=== PATIENT | male | born 1955 | race Caucasian/White ===

== ENCOUNTER 2024-07-15 13:19 | Inpatient (IN) | payer MEDICARE, MEDICAID, SELFPAY ==
[2024-07-09 07:15] VITALS: BMI 27.1
[2024-07-09 07:59] LABS: Collection Type, Urine Clean Catch; Squamous Epithelial Cell,Urine 0 /hpf (0-5)
[2024-07-09 08:17] LABS: Basophils # (Auto) 0.1 Thou/mm3 (0.0-0.2); Basophils % (Auto) 1 % (0-2.5); Eosinophils # (Auto) 1.3 Thou/mm3 (0.0-0.5); Eosinophils % (Auto) 12 % (0-10); Hematocrit 48.5 % (41.0-53.0); Hemoglobin 16.6 g/dL (13.5-16.0); Immature Granulocytes % (Auto) 0 % (0-0); Immature Granulocytes Auto 0.04 Thou/mm3 (0.00-0.00); Lymphocytes # (Auto) 2.6 Thou/mm3 (1.0-4.8); Lymphocytes % (Auto) 25 % (10-50); Mean Corpuscular HGB Conc 34.2 g/dl (31.0-37.0); Mean Corpuscular Hemoglobin 30.4 pg (25.0-35.0); Mean Corpuscular Volume 89 fL (80-100); Monocytes % (Auto) 9 % (0-12); Neutrophils # (Auto) 5.6 Thou/mm3 (1.8-7.7); Neutrophils % (Auto) 53 % (37-80); Nucleated Red Blood Cell % 0 /100 WBC (0); Platelet Count 265 Thou/mm3 (140-440); RDW Standard Deviation 41.5 fL (35.1-43.9); Red Blood Count 5.46 Miln/mm3 (4.50-5.90); White Blood Count 10.6 Thou/mm3 (3.8-10.6)
[2024-07-09 08:23] LABS: Bilirubin,Urine Negative (Negative); Blood,Urine Negative (Negative); Clarity,Urine Clear (Clear/Hazy); Color,Urine Lt-Yellow (Lt Yel-Yel); Glucose, Urine 4+ (Negative); Ketones,Urine Negative (Negative); Leukocyte Esterase,Urine Negative (Negative); Nitrite,Urine Negative (Negative); Protein,Urine Negative (Neg - Trace); RBC,Urine 1 /hpf (0-3); Specific Gravity,Urine 1.031 (1.001-1.035); Urobilinogen,Urine Negative mg/dL (0.0-1.0); WBC,Urine 1 /hpf (0-5)
[2024-07-09 08:24] LABS: Alanine Aminotransferase 26 U/L (10-49); Albumin, Serum 5.1 gm/dL (3.4-4.8); Albumin/Globulin Ratio 1.9 (1.2-2.2); Alkaline Phosphatase 80 U/L (46-116); Anion Gap 5 (7-16); Aspartate Amino Transferase 24 U/L (0-34); BUN/Creatinine Ratio 13 Ratio (12-20); Bilirubin,Total 0.9 mg/dL (0.3-1.2); Blood Urea Nitrogen 13 mg/dL (9-23); Calcium 10.5 mg/dL (8.3-10.6); Calcium (Corrected) 10.5 mg/dL (8.5-10.1); Carbon Dioxide 26.9 mMol/L (20.0-31.0); Chloride 105 mMol/L (98-107); Estimated Creatinine Clearance 63.8 mL/min (>60); Globulin 2.7 gm/dL (2.3-3.5); Glucose 133 mg/dL (74-106); Osmolality,Calculated 275 (275-295); Potassium 4.3 mMol/L (3.4-5.1); Sodium 137 mMol/L (136-145); Total Protein 7.8 gm/dL (5.7-8.2); eGFR > 60 See Note
--- NOTE | 2024-07-09 14:31 | SUR.PREOP ---
Cardiac records reviewed with Dr Wilson.
--- NOTE | 2024-07-13 16:42 | ESHP_ITS ---
RE: PHILLY ORNELAS : 1955 DATE OF ADMISSION: 07/14/2024 HISTORY OF PRESENT ILLNESS: Fercho Ornelas is a 69-year-old male. He has a prostatism, urinates many times at night, nocturia 3-4 times. He is on tamsulosin and finasteride. He takes tamsulosin once a day. Cystoscopy in the past has revealed moderate-sized bilobed prostate. He had a transrectal prostatic ultrasound and biopsy, which were reported as benign prostatic hypertrophy. He is very much disturbed with his nocturia and wishes to have something else done. He is now scheduled to have transurethral resection of prostate. PAST SURGICAL HISTORY: Right shoulder surgery and appendectomy. SOCIAL HISTORY: He has 2 children. PAST MEDICAL HISTORY: He has history of hypertension and history of diabetes mellitus. MEDICATIONS: He takes: 1. Janumet. 2. Tamsulosin. 3. Statin medication. 4. Norvasc. 5. Sertraline. 6. Aspirin. 7. Hydroxyzine. 8. Jardiance. 9. Finasteride. ALLERGIES: NONE KNOWN. CLINICAL EXAMINATION: HEENT: Normal. Neck: Supple. Lungs: Clear. Heart: Sounds are normal. Abdomen: Soft without any organomegaly, no guarding, no rigidity. Extremities: Normal. Genitalia: Phallus is normal. Testes are down in the scrotum. Rectal: Reveals moderately enlarged prostate. IMPRESSION: Prostatism and prostatic obstruction. PLAN: Transurethral resection of prostate. Planned procedure, risks and complications have been discussed with the patient. The patient has understood them and agreed to proceed. cc: Pete Strauss MD DT: 14:28:27 TT: 16:40:00 Ref: [id number] - TID: [id number]
[2024-07-14] VITALS (24 sets, daily range): BP systolic 100–156; BP diastolic 62–98; PULSE 76–96; RESP 14–24; TEMP 36–37.1; O2SAT 93–99; BMI 26.9
--- NOTE | 2024-07-14 07:30 | CHAP ---
Visited briefly with patient and had prayer before the procedure.
[2024-07-14] MEDS: NICOTINE PATCH 21 MG/24 HR PATCH.TD24 TOP (08:50)
--- NOTE | 2024-07-14 09:40 | SUR.PHASEI ---
0940 Patient arrived to recovery resting comfortably in [facility], sleeping and able to arouse with verbal prompting, then drifts back to sleep, on oxygen 10L via oxy mask, breathing unlabored, vital signs stable, denies pain, nicotine patch noted to left shoulder, dressing intact to penis; ointment, gauze, silk tape, 3-way daly catheter in place with leg secure; continuous bladder irrigation in place, patient has 3000ml bag of NS for irrigation, fluid in daly bag is pale, lung sounds clear upon auscultation, bilateral radial pulses present when palapted, report received from Rey WEBSTER/Dr. Wilson and Tonny TAVARES
[2024-07-14] MEDS: SODIUM CHLORIDE 0.9% 1000 ML 1,000 ML 100 ML IV ×2 (10:32→21:27)
[2024-07-14] MEDS: fentaNYL CIT INJ 50 mCg/ML AMP 2ML IV (10:48)
--- NOTE | 2024-07-14 11:21 | ESOP_ITS ---
RE: PHILLY ORNELAS : 1955 DATE OF OPERATION: 07/14/2024 PREOPERATIVE DIAGNOSIS: Prostatism, prostatic obstruction. POSTOPERATIVE DIAGNOSIS: Prostatism, prostatic obstruction. PROCEDURE PERFORMED: Cystoscopy and transurethral resection of prostate. ANESTHESIA: General by Dr. Wilson. INDICATION: The patient is a 69-year-old gentleman with history of prostatism and prostatic obstruction. He has been having frequency, nocturia, slowing urinary stream. He has been on medication. It is not helping him much and cystoscopy revealed obstructive bilobar prostate with small median lobe. The patient wishes to have something done for his enlarged prostate. Transurethral resection of prostate was then scheduled. Planned procedure, risks and complications have been discussed with the patient. The patient and his family have understood them and agreed to proceed. DESCRIPTION OF PROCEDURE: After the patient was brought to the operating table under adequate general anesthesia, and dorsal lithotomy position, parts were prepped and draped in the usual fashion. Storz resectoscope was then introduced into the bladder. Inspection again revealed obstructive medium size bilobed prostate. There are no intravesical stones or tumors. Ureteral orifices are normal in position and appearance. Transurethral resection of prostate was then carried out by resecting median lobe, right lobe, and left lobe up to the capsule. Minimal bleeding was encountered, which was controlled by using electrocoagulation. Both ureteral orifices, verumontanum and external urethral sphincter were prevented from any injury. All resected chips were removed from the bladder by using Ellik's evacuator. After this, an Olympus button type of electrode was used to control all the bleeding. Resectoscope was then removed. A 22-Indonesian 3-way Short catheter was then inserted into the bladder and was left indwelling. Irrigation of catheter revealed clear return. Catheter was then connected to a sterile bag and the patient was then transferred to the recovery room in a satisfactory condition, having tolerated the entire procedure well. Thank you for your kind referral. cc: Pete Strauss MD DT: 10:05:14 TT: 11:19:00 Ref: [id number] - TID: [id number]
--- NOTE | 2024-07-14 11:24 | SUR.PHASEII ---
1124 Called patients [id number] John and updated her about patient being in recovery and requesting no visitors at the time
--- NOTE | 2024-07-14 11:50 | SUR.PHASEII ---
1150 Report given to Sarah Choudhary RN
--- NOTE | 2024-07-14 11:50 | SUR.PHASEII ---
pt resting in bed, breathing unlabored, dressing to penis clean, dry, and intact, daly in place and patent, continuous bladder irrigation running, report from Sarah Sethi RN
--- NOTE | 2024-07-14 12:28 | SUR.PHASEII ---
1228 Report received from Sarah Choudhary RN
--- NOTE | 2024-07-14 12:28 | SUR.PHASEII ---
report to Sarah Sethi RN
--- NOTE | 2024-07-14 12:52 | SUR.PHASEII ---
1252 patient sitting up in bed eating a jello
[2024-07-14] MEDS: HYDROcodone/APAP 5/325 TABLET 1 TAB PO (12:57)
--- NOTE | 2024-07-14 14:48 | SUR.PHASEII ---
[address] Ba via telephone about patient hematuria and need for increase rate for continuous irrigation as the fluid is not clear, MD stated this was to be expected because patient takes aspirin and to continue as ordered and keep irrigation at medium rate, patient vital signs stable, resting comfortably in [facility], no bladder distention noted 3106 Dr. Ba called via telephone requesting patient current vital signs BP 119/75, HR 80, oxygen saturation 98 on 2L via oxy mask, RR 15, denies pain just stated, discomfort from catheter, temp 97.2, gave order to continue care, no new orders at this time
--- NOTE | 2024-07-14 15:50 | SUR.PHASEII ---
1550 patient ate an apple sauce, bowl of cream of chicken soup and drinking water, tolerated well
[2024-07-14] MEDS: KETOROLAC INJ 30 MG/ML VIAL IVP ×2 (16:45→22:32)
--- NOTE | 2024-07-14 16:55 | SUR.PHASEII ---
1639 Report given to Chandu TAVARES, patient meets discharge criteria from recovery, awake and alert, breathing unlabored, on oxygen 2L via oxy mask, per patient his pain is tolerable, dressing intact; light blood noted to dressing, patient denies nausea, continuous bladder irrigation in place with medium drip per MD order with catheter secure, bright red fluid in daly bag, IV patent, fluids running per MD order. 1642 patient complained of pain 1645 patient medicated per MD order for pain 1655 patient transported via gurney to room 358 without incident, patient able to transfer self from gurney to bed with assistance from staff, Liseth TAVARES prompting in patient room, all questioned answer and RN informed of continuos bladder irrigation and the process
--- NOTE | 2024-07-14 17:18 | SUR.PHASEII ---
called patients sister in law and notified her regarding patients room assignment and he was in the room now
[2024-07-14] MEDS: PROMETHAZINE INJ 25 MG/ML VIAL IM ×2 (18:33→23:01)
[2024-07-14] MEDS: MEPERIDINE INJ 50 MG/ML VIAL 75 MG IM (18:34)
--- NOTE | 2024-07-14 18:50 | PC.NURSE ---
Pt. received from the recovery , on a continous irrigation, color of the drainage is bright red SINCE received , pt. on 2 l oxy mask. Spoke woith Dr. contreras and updated him about the drainage and the clog and the drainage amount and color. Dr. Andres saw pt. on bedside. Did the irrigation and wants to put the pt. NPO mid night.
[2024-07-14 19:16] LABS: Basophils % (Auto) 0 % (0-2.5); Eosinophils % (Auto) 0 % (0-10); Hematocrit 41.4 % (41.0-53.0); Hemoglobin 13.9 g/dL (13.5-16.0); Immature Granulocytes % (Auto) 0 % (0-0); Immature Granulocytes Auto 0.04 Thou/mm3 (0.00-0.00); Lymphocytes # (Auto) 0.9 Thou/mm3 (1.0-4.8); Lymphocytes % (Auto) 7 % (10-50); Mean Corpuscular HGB Conc 33.6 g/dl (31.0-37.0); Mean Corpuscular Hemoglobin 29.7 pg (25.0-35.0); Mean Corpuscular Volume 89 fL (80-100); Monocytes # (Auto) 0.7 Thou/mm3 (0.0-0.8); Monocytes % (Auto) 5 % (0-12); Neutrophils # (Auto) 12.2 Thou/mm3 (1.8-7.7); Neutrophils % (Auto) 88 % (37-80); Nucleated Red Blood Cell % 0 /100 WBC (0); Platelet Count 194 Thou/mm3 (140-440); RDW Standard Deviation 41.8 fL (35.1-43.9); Red Blood Count 4.68 Miln/mm3 (4.50-5.90); White Blood Count 13.9 Thou/mm3 (3.8-10.6)
--- NOTE | 2024-07-14 19:41 | PC.NURSE ---
wants pt. to be NPO now.
--- NOTE | 2024-07-14 20:30 | PC.NURSE ---
Called Dr. Ba with CBC result as requested.
[2024-07-14] MEDS: MEPERIDINE INJ 50 MG/ML VIAL 100 MG IM (23:00)
[2024-07-15] VITALS (20 sets, daily range): BP systolic 93–123; BP diastolic 56–85; PULSE 77–122; RESP 15–95; TEMP 35.4–36.8; O2SAT 91–100
[2024-07-15] MEDS: MEPERIDINE INJ 50 MG/ML VIAL 100 MG IM ×2 (05:03→22:11)
[2024-07-15] MEDS: PROMETHAZINE INJ 25 MG/ML VIAL IM (05:04)
[2024-07-15 07:27] LABS: Basophils # (Auto) 0.1 Thou/mm3 (0.0-0.2); Basophils % (Auto) 0 % (0-2.5); Eosinophils # (Auto) 0.1 Thou/mm3 (0.0-0.5); Eosinophils % (Auto) 1 % (0-10); Hematocrit 29.8 % (41.0-53.0); Hemoglobin 9.9 g/dL (13.5-16.0); Immature Granulocytes % (Auto) 0 % (0-0); Immature Granulocytes Auto 0.06 Thou/mm3 (0.00-0.00); Lymphocytes # (Auto) 2.5 Thou/mm3 (1.0-4.8); Lymphocytes % (Auto) 16 % (10-50); Mean Corpuscular HGB Conc 33.2 g/dl (31.0-37.0); Mean Corpuscular Hemoglobin 30.5 pg (25.0-35.0); Mean Corpuscular Volume 92 fL (80-100); Monocytes # (Auto) 1.9 Thou/mm3 (0.0-0.8); Monocytes % (Auto) 12 % (0-12); Neutrophils # (Auto) 10.6 Thou/mm3 (1.8-7.7); Neutrophils % (Auto) 70 % (37-80); Nucleated Red Blood Cell % 0 /100 WBC (0); Platelet Count 197 Thou/mm3 (140-440); RDW Standard Deviation 43.5 fL (35.1-43.9); Red Blood Count 3.25 Miln/mm3 (4.50-5.90); White Blood Count 15.1 Thou/mm3 (3.8-10.6)
[2024-07-15 07:54] LABS: Albumin, Serum 3.7 gm/dL (3.4-4.8); Anion Gap 9 (7-16); BUN/Creatinine Ratio 18 Ratio (12-20); Blood Urea Nitrogen 24 mg/dL (9-23); Calcium 8.5 mg/dL (8.3-10.6); Calcium (Corrected) 8.7 mg/dL (8.5-10.1); Carbon Dioxide 20.9 mMol/L (20.0-31.0); Chloride 108 mMol/L (98-107); Creatinine (Component) 1.3 mg/dL (0.6-1.3); Estimated Creatinine Clearance 49.1 mL/min (>60); Glucose 201 mg/dL (74-106); Osmolality,Calculated 285 (275-295); Phosphorous 4.9 mg/dL (2.4-5.1); Potassium 4.6 mMol/L (3.4-5.1); Sodium 138 mMol/L (136-145); eGFR 60 See Note
--- NOTE | 2024-07-15 08:15 | CHAP ---
Rapid Response call. Prayed for patient and staff outside room.
[2024-07-15 10:14] LABS: INR 1.1 (0.9-1.3); Partial Thromboplastin Time 23.6 Seconds (22.0-36.0); Prothrombin Time 11.9 Seconds (9.0-12.2)
[2024-07-15] MEDS: SODIUM CHLORIDE 0.9% 500 ML 500 ML 999 ML IV (10:15)
[2024-07-15 10:21] LABS: Glucose Estimated Average 117 mg/dL (80-131); Hemoglobin A1C 5.7 % Hgb (4.8-6.0)
[2024-07-15] MEDS: LEVOFLOXACIN/D5W 500 MG IVPB 500 MG/100 ML BAG 100 MG IV (10:23)
--- NOTE | 2024-07-15 10:51 | CHAP ---
Patient was visited by a Spiritual Care Volunteer on 07/15/2024 between [phone] and received comfort, encouragement and/or prayer.
--- NOTE | 2024-07-15 11:28 | PC.SS ---
Patient Brenden Albert is a 69 Year old male admitted for Turp 19620. SS met with patient at bedside to discuss discharge plan. Patient reports he lives alone. Patient reports his sister in law is his surrogate decision maker [phone]. Patient reports that prior to admission he did not utilize any source of DME to assist with ambulation. Choice of pharmacy is [facility]. Patient's PCP: Pete Strauss. At time of discharge patient will return home. Next of Kin: Sister in law, John Albert [phone] Discharge Plan: Home
--- NOTE | 2024-07-15 12:30 | SUR.PHASEI ---
pt received from LELA in recovery bay 8. pt asleep but responds to voice, breathing unlabored on oxymask 8l. v/s stable. pt dressing to penis area cdi. report received from Jose C TAVARES and Dr. Rivas.
--- NOTE | 2024-07-15 13:28 | SUR.PHASEI ---
pt asleep but responds to voice, breathing unlabored on 2l nc. v/s stable. pt dressing to penis area cdi. [address] draining clear and pale. report called to Alysa TAVARES. pt will be transferred to room at this time.
--- NOTE | 2024-07-15 14:04 | ESCONSULT_ITS ---
HPI Data of Consult Requesting Physician: Bernabe Ba MD Admitting Provider: Bernabe Ba MD Attending Provider: Bernabe Ba MD Primary Care Provider: Pete Strauss MD Consult Narrative Reason for consult: Dizziness, acute blood loss History of present illness: Mr. Albert is a 69-year-old male with past medical history of benign hypertrophy of prostate, hypertension, diabetes and anxiety who was admitted to [facility] for TURP due to underlying symptomatic nocturia because of moderate sized bilobed prostate. Patient underwent procedure on 07/14/2024. Postprocedure patient had gross hematuria, was on bladder irrigation, patient's hemoglobin decreased from 13.9 to 9.9 overnight and patient, rapid response called for the patient in a.m., patient's blood pressure 83/67, patient tachycardic with heart rate of 115, patient complained of dizziness. Patient was given 500 cc bolus of NS, will be given 2 units PRBC. Patient evaluated by Dr. Ba and patient will be taken to the OR for further intervention. cc:: cc: Bernabe Ba MD Review of Systems Review of Systems Narrative Review of Systems: ROS: -CONSTITUTIONAL: Denies weight loss, fever and chills. Positive for dizziness, reports feeling tired. -HEENT: Denies changes in vision and hearing. -RESPIRATORY: Denies SOB and cough. -CV: Denies palpitations and Chest Pain. -GI: Denies abdominal pain, nausea, vomiting,constipation and diarrhea. -: Positive for hematuria. -MSK: Denies myalgia and joint pain. -SKIN: Denies rash and pruritus. -NEUROLOGICAL: Denies headache and syncope. -PSYCHIATRIC: Denies recent changes in mood. Denies anxiety and depression. Past Medical History Past Medical History Comments PMH COMMENT: PMH: Positive for benign hypertrophy of prostate, hypertension, diabetes and anxiety PSHx: Denies Allergies: No known allergies Social history: -Smoking: Positive for smoking Exam Vital Signs Temp Pulse Resp BP Pulse Ox O2 Del Method O2 Flow Rate 97.2 F 84 15 112/66 96 Oxy Mask 2 07/15/24 13:25 07/15/24 13:25 07/15/24 13:25 07/15/24 13:25 07/15/24 13:25 07/15/24 10:30 07/15/24 13:25 Narrative Exam Physical Exam General: Awake and in no acute distress. Conversational and non-toxic appearing. HEENT: Normocephalic, atraumatic, mucous membranes moist. Heart: Regular rate and rhythm, no murmurs. Lungs: Clear to auscultation with no wheezing or crackles. Abdomen: Soft, nondistended, nontender, positive bowel sounds. Patient's urine positive for bright red blood, seen at bedside. Neurologic: Alert and oriented x3, no gross neurological deficit, and patient able to move all 4 extremities. Extremities: No edema. Skin: No rash or ecchymoses. Results Labs 07/16/24 05:03 07/16/24 05:03 Labs: Short CBC 07/14/24 07/15/24 Range/Units 18:52 07:15 WBC 13.9 H 15.1 H (3.8-10.6) Thou/mm3 Hgb 13.9 D 9.9 L D (13.5-16.0) g/dL Hct 41.4 29.8 L D (41.0-53.0) % Plt Count 194 D 197 (140-440) Thou/mm3 BMP 07/15/24 07:15 Sodium 138 Potassium 4.6 Chloride 108 H Carbon Dioxide 20.9 BUN 24 H Creatinine 1.3 Glucose 201 H Calcium 8.5 Liver Function 07/15/24 Range/Units 07:15 Albumin 3.7 (3.4-4.8) gm/dL Quality Measures Quality Measures VTE prophylaxis Advance care planning discussed with:: patient Medications Home Medications and Allergies Home Medications ?Medication ?Instructions ?Recorded ?Confirmed ?Type atorvastatin 40 mg tablet (Lipitor) 40 mg PO HS #0 tabs 09/02/17 07/09/24 History finasteride 5 mg tablet (Proscar) 5 mg PO QDAY #0 tabs 09/02/17 07/14/24 History sertraline 25 mg tablet (Zoloft) 25 mg PO HS #0 tabs 09/02/17 07/14/24 History tamsulosin 0.4 mg capsule (Flomax) 0.4 mg PO QDAY ##0 09/02/17 07/14/24 History amlodipine 2.5 mg tablet 10 mg PO QDAY 11/11/23 07/09/24 History aspirin 81 mg tablet,delayed 81 mg PO DAILY 05/21/24 07/14/24 History release hydroxyzine HCl 25 mg tablet 25 mg PO BID PRN Anxiety 05/21/24 07/14/24 History empagliflozin 25 mg tablet 25 mg PO QAM 06/11/24 07/14/24 History (Jardiance) sitagliptin phosphate 50 1 tab PO BID 07/09/24 07/14/24 History mg-metformin 1,000 mg tablet (Janumet) Allergies Allergy/AdvReac Type Severity Reaction Status Date / Time No Known Allergies Allergy Verified 07/14/24 09:51 Visit Medications Hydrocodone Bitart/Acetaminophen (Hydrocodone/Apap 5/325 Tablet) 1 tab PO Q6HR PRN PRN Reason: PAIN 2-3 Stop: 07/19/24 10:17 Last Admin: 07/14/24 12:57 Dose: 1 tab Dextrose (Dextrose 50%-Water Inj 50 Ml Syringe) 25 ml IV Q15MIN PRN PRN Reason: BG 50-70 responsive npo pt Stop: 08/14/24 09:40 Dextrose (Dextrose 50%-Water Inj 50 Ml Syringe) 50 ml IV Q15MIN PRN PRN Reason: BG <50 OR BG <70 & pt unresponsive Stop: 08/14/24 09:40 Glucagon (Glucagon Inj 1 Mg Vial) 1 mg IM Q15MIN PRN PRN Reason: BG <70, and no IV access Levofloxacin/Dextrose (Levaquin Ivpb) 500 mg in 100 mls @ 100 mls/hr IV Q24H COUNTS INCLUDE 234 BEDS AT THE [facility] Stop: 07/22/24 07:59 Last Admin: 07/15/24 10:23 Dose: 100 mls/hr Sodium Chloride (Ns) 1,000 mls @ 100 mls/hr IV .Q10H COUNTS INCLUDE 234 BEDS AT THE [facility] Stop: 07/16/24 13:40 Insulin Human Lispro (Insulin Lispro (Admelog) 1 Unit/0.01 Ml Unit) 0 unit [facility]; Protocol Stop: 08/14/24 11:29 Last Admin: 07/15/24 11:41 Dose: Not Given Meperidine HCl (Meperidine Inj 50 Mg/Ml Vial) 100 mg IM Q6HR PRN PRN Reason: PAIN SCALE 7-10 (Severe Stop: 07/19/24 22:48 Last Admin: 07/15/24 05:03 Dose: 100 mg Ondansetron HCl (Ondansetron Inj 2 Mg/Ml Inj 2 Ml) 4 mg IV Q6HR PRN PRN Reason: NAUSEA OR VOMITING Stop: 08/13/24 10:13 Promethazine HCl (Promethazine Inj 25 Mg/Ml Vial) 25 mg IM Q6HR PRN PRN Reason: To be given with Dermerol Stop: 08/13/24 10:13 Last Admin: 07/15/24 05:04 Dose: 25 mg Discontinued Medications Hydrocodone Bitart/Acetaminophen (Hydrocodone/Apap 5/325 Tablet) 1 tab PO X1 PRN PRN Reason: PAIN Fentanyl Citrate (Fentanyl Cit Inj 50 Mcg/Ml Amp 2ml) 50 mcg IV Q5M PRN PRN Reason: PAIN SCALE 4-10(Mod-Sev Stop: 07/14/24 11:29 Last Admin: 07/14/24 10:48 Dose: 50 mcg Hydralazine HCl (Hydralazine Inj 20 Mg/Ml Vial) 5 mg IV Q20M PRN PRN Reason: SEE COMMENTS Stop: 07/14/24 11:29 Lactated Ringer's (Lactated Ringers) 1,000 mls @ 20 mls/hr IV .Q24H ONE Stop: 07/15/24 05:59 Last Admin: 07/14/24 12:25 Dose: Not Given Promethazine HCl 12.5 mg/ (Sodium Chloride) 50.5 mls @ 2.5 mls/min IM X1 PRN PRN Reason: NAUSEA OR VOMITING Stop: 07/14/24 11:29 Sodium Chloride (Ns) 1,000 mls @ 100 mls/hr IV .Q10H OPAL Stop: 07/15/24 10:29 Last Admin: 07/14/24 21:27 Dose: 100 mls/hr Sodium Chloride (Ns) 500 mls @ 999 mls/hr IV .Q31M ONE Stop: 07/15/24 08:57 Last Admin: 07/15/24 10:15 Dose: 999 mls/hr Ketorolac Tromethamine (Ketorolac Inj 30 Mg/Ml Vial) 30 mg IVP Q6HR PRN PRN Reason: PAIN SCALE 4-6 (Moderate Stop: 07/19/24 10:13 Last Admin: 07/14/24 22:32 Dose: 30 mg Meperidine HCl (Meperidine Inj 50 Mg/Ml Vial) 12.5 mg IV Q5M PRN PRN Reason: SHIVERING Stop: 07/19/24 09:28 Meperidine HCl (Meperidine Inj 50 Mg/Ml Vial) 75 mg IV Q6HR PRN PRN Reason: PAIN SCALE 7-10 (Severe Stop: 07/19/24 09:28 Meperidine HCl (Meperidine Inj 50 Mg/Ml Vial) 75 mg IM Q6HR PRN PRN Reason: PAIN SCALE 7-10 (Severe Stop: 07/19/24 09:28 Last Admin: 07/14/24 18:34 Dose: 75 mg Metoprolol Tartrate (Metoprolol Tartrate Inj 1 Mg/Ml Amp 5 Ml) 1 mg IVP Q5M PRN PRN Reason: TACHYCARDIA Stop: 07/15/24 09:28 Metoprolol Tartrate (Metoprolol Tartrate Inj 1 Mg/Ml Amp 5 Ml) 1 mg IVP Q5M PRN PRN Reason: TACHYCARDIA Stop: 07/14/24 11:29 Midazolam HCl (Midazolam Inj 1 Mg/Ml Vial 2 Ml) 1 mg IV Q5M PRN PRN Reason: ANXIETY Stop: 07/14/24 11:29 Morphine Sulfate (Morphine Sulf Inj 10 Mg/Ml Vial) 2 mg IVP Q10M PRN PRN Reason: PAIN SCALE 4-10(Mod-Sev Stop: 07/14/24 11:29 Nicotine (Nicotine Patch 21 Mg/24 Hr Patch.Td24) 21 mg TOP X1 ONE Stop: 07/14/24 07:56 Last Admin: 07/14/24 08:50 Dose: 21 mg Ondansetron HCl (Ondansetron Inj 2 Mg/Ml Inj 2 Ml) 4 mg IV X1 PRN PRN Reason: NAUSEA OR VOMITING Stop: 07/14/24 11:29 Assessment & Plan Plan Assessment and Plan: Summary: Mr. Albert is a 69-year-old male with past medical history of benign hypertrophy of prostate, hypertension, diabetes and anxiety who was admitted to [facility] for TURP for symptomatic benign hypertrophy of prostate. #Gross hematuria #Acute anemia secondary to gross hematuria #Benign hypertrophy of prostate #Status post TURP 07/14 -Patient complained of nocturia and urinary symptoms, patient was admitted for transurethral resection of prostate due to underlying symptomatic benign hypertrophy of prostate. -Patient's status post TURP, had a rapid response called for dizziness and low blood pressure, blood pressure 83/67 (MAP 72), patient tachycardic, was undergoing bladder irrigation gross hematuria noted at bedside. Patient was given 500 cc bolus NS. Plan: -Transfused 2 units PRBC -Monitor posttransfusion H&H -Patient will be taken to the OR by urology later today for surgical intervention -Hold aspirin. -Will obtain PT PTT and INR #Diabetes mellitus -Patient takes Jardiance, Janumet at home -Follow A1c in a.m. -Lispro sliding scale insulin -Hypoglycemia protocol in place # Hypertension #Hyperlipidemia #Anxiety -Patient takes amlodipine 10 mg daily for hypertension, will hold blood pressure soft -Resume atorvastatin at bedtime -Resumed hydroxyzine 25 mg p.o. twice daily -Will hold Zoloft for now DVT prophylaxis: SCDs GI prophylaxis: Not indicated Diet: N.p.o. Lines: Peripheral IV Code status: Full code Case discussed with Attending Dr. Cardona. Aracely Douglass PGY1 Attending Provider Attestation/Addendum I, Jacinda Cardona DO, attest that I was physically present for the saunders portions of the service and evaluated the patient with the resident and I reviewed and discussed the case with the resident and agree with the resident's findings and plans of care as documented above Patient is a 69yo male with Pmhx of BPH, HTN and NIDDM who is s/p TURP yesterday on 07/15 and admitted for observation overnight. IM consulted for gross hematuria resulting in rapid response this AM during which patient was tachycardic and hypotensive.. Patient had been on bladder irrigation overnight and noted to have a significant drop in hgb from 13.9 to 9.9 Patient was given a bolus of 500cc of IV fluids, followed by two units of pRBCs to be transfused. Coagulation panel ordered. Patient was promptly taken to the OR for evacuation of blood clots. Patient was seen following procedure and resting comfortably. Short catheter draining clear urine. Hgb improved to 10.7 following transfusion. Patient now hemodynamically stable. We will continue to follow closely.
[2024-07-15 14:32] LABS: Hematocrit 31.6 % (41.0-53.0); Hemoglobin 10.7 g/dL (13.5-16.0)
[2024-07-15] MEDS: NICOTINE PATCH 21 MG/24 HR PATCH.TD24 TOP (14:55)
[2024-07-15] MEDS: SODIUM CHLORIDE 0.9% 1000 ML 1,000 ML 100 ML IV (14:56)
--- NOTE | 2024-07-15 15:24 | ESOP_ITS ---
RE: PHILLY ORNELAS : 1955 DATE OF OPERATION: 07/15/2024 PREOPERATIVE DIAGNOSIS: Clot, urinary retention, history of transurethral resection of prostate done on 07/14/2024. POSTOPERATIVE DIAGNOSIS: Clot, urinary retention, history of transurethral resection of prostate done on 07/14/2024. PROCEDURE PERFORMED: Cystoscopy, evacuation of large amount of bladder clots and fulguration of the prostatic fossa. ANESTHESIA: General by Dr. Rivas. INDICATION: The patient is a 69-year-old gentleman who had a transurethral resection of prostate for obstructive prostate yesterday. The procedure was done without any complications. He was in the recovery room, the urine was completely clear for at least about 2 hours and then he had a little bleeding. Overnight the patient had more bleeding and clot urinary retention. I saw the patient last night at about 6 o'clock and catheter was irrigating well. This morning the patient had retention of urine from the clot. He was now scheduled to have cystoscopy, evacuation of bladder clots and the fulguration of the prostatic fossa. Planned procedure, risks and complications have been discussed with the patient and the patient's family. They have understood them and agreed to proceed. DESCRIPTION OF PROCEDURE: After the patient was brought to the operating table under adequate general anesthesia given by Dr. Rivas, he was placed in dorsal lithotomy position. Short catheter from the bladder was removed. A 26 Storz resectoscope was then introduced into the bladder. The patient had a large amount of bladder clots. These were evacuated with a large amount of fluid. All the clots were removed from the bladder. The bladder appeared to be intact. There was no evidence of any bladder trauma. There was no bladder tumor or stones. Ureteral orifices are normal. Prostatic fossa was examined. There was no active bleeding, but small areas of oozing, which were all fulgurated with electrodes with electrocautery. At the end, there was no area of clots or bleeding. Prostatic fossa appeared to be empty without any obstruction. Scope was withdrawn. A 22-Romansh Short catheter was then inserted into the bladder and was left indwelling. Irrigation of catheter revealed clear return. Catheter was then connected to a sterile bag. The patient was then transferred to the recovery room in a satisfactory condition having tolerated the entire procedure well. Blood loss during this procedure was about 25 mL most of them were all old blood clots, which were removed from the bladder. DT: 12:46:18 TT: 15:22:00 Ref: [id number] - TID: [id number]
[2024-07-15] MEDS: INSULIN LISPRO (AdmeLOG) 1 UNIT/0.01 ML UNIT SC (17:50)
[2024-07-15] MEDS: ATORVASTATIN CALCIUM 20 MG TABLET 40 MG PO (20:02)
--- NOTE | 2024-07-15 22:20 | PC.NURSE ---
MD Ba called and get update for the pts.
[2024-07-16] VITALS (7 sets, daily range): BP systolic 125–144; BP diastolic 68–87; PULSE 82–91; RESP 18–93; TEMP 36.4–37.2; O2SAT 91–98
[2024-07-16] MEDS: SODIUM CHLORIDE 0.9% 1000 ML 1,000 ML 100 ML IV ×2 (01:27→12:49)
[2024-07-16] MEDS: HYDROcodone/APAP 5/325 TABLET 1 TAB PO (04:10)
[2024-07-16 06:35] LABS: Glucose Estimated Average 123 mg/dL (80-131); Hemoglobin A1C 5.9 % Hgb (4.8-6.0)
[2024-07-16 08:02] LABS: Basophils % (Auto) 0 % (0-2.5); Eosinophils # (Auto) 0.2 Thou/mm3 (0.0-0.5); Eosinophils % (Auto) 1 % (0-10); Immature Granulocytes % (Auto) 0 % (0-0); Lymphocytes % (Auto) 11 % (10-50); Mean Corpuscular Hemoglobin 30.4 pg (25.0-35.0); Mean Corpuscular Volume 89 fL (80-100); Monocytes # (Auto) 1.6 Thou/mm3 (0.0-0.8); Monocytes % (Auto) 12 % (0-12); Nucleated Red Blood Cell % 0 /100 WBC (0); Platelet Count 126 Thou/mm3 (140-440); Red Blood Count 2.83 Miln/mm3 (4.50-5.90)
[2024-07-16 08:03] LABS: Hematocrit 25.2 % (41.0-53.0); Immature Granulocytes Auto 0.04 Thou/mm3 (0.00-0.00); Lymphocytes # (Auto) 1.5 Thou/mm3 (1.0-4.8); Mean Corpuscular HGB Conc 34.1 g/dl (31.0-37.0); Neutrophils # (Auto) 9.7 Thou/mm3 (1.8-7.7); Neutrophils % (Auto) 75 % (37-80); RDW Standard Deviation 46.5 fL (35.1-43.9)
[2024-07-16 08:12] LABS: Alanine Aminotransferase 11 U/L (10-49); Albumin, Serum 3.2 gm/dL (3.4-4.8); Albumin/Globulin Ratio 1.9 (1.2-2.2); Alkaline Phosphatase 47 U/L (46-116); Anion Gap 5 (7-16); Aspartate Amino Transferase 10 U/L (0-34); BUN/Creatinine Ratio 24 Ratio (12-20); Blood Urea Nitrogen 22 mg/dL (9-23); Calcium 8.1 mg/dL (8.3-10.6); Calcium (Corrected) 8.7 mg/dL (8.5-10.1); Carbon Dioxide 24.4 mMol/L (20.0-31.0); Chloride 109 mMol/L (98-107); Creatinine (Component) 0.9 mg/dL (0.6-1.3); Estimated Creatinine Clearance 70.9 mL/min (>60); Globulin 1.7 gm/dL (2.3-3.5); Glucose 117 mg/dL (74-106); Magnesium 1.7 mg/dL (1.6-2.6); Osmolality,Calculated 279 (275-295); Phosphorous 2.4 mg/dL (2.4-5.1); Potassium 3.7 mMol/L (3.4-5.1); Sodium 138 mMol/L (136-145); Total Protein 4.9 gm/dL (5.7-8.2); eGFR > 60 See Note
[2024-07-16] MEDS: NICOTINE PATCH 21 MG/24 HR PATCH.TD24 TOP (08:44)
[2024-07-16 09:11] LABS: Hemoglobin 8.6 g/dL (13.5-16.0)
[2024-07-16] MEDS: LEVOFLOXACIN/D5W 500 MG IVPB 500 MG/100 ML BAG 100 MG IV (09:13)
[2024-07-16] MEDS: MEPERIDINE INJ 50 MG/ML VIAL 100 MG IM (10:52)
[2024-07-16] MEDS: PROMETHAZINE INJ 25 MG/ML VIAL IM (11:15)
--- NOTE | 2024-07-16 12:26 | PC.NURSE ---
Dr. Ba called, he want continue irrigation stop and remove traction from daly, leave in daly, he will call to check on pt
--- NOTE | 2024-07-16 12:47 | PC.NURSE ---
continuous bladder irrigation stopped and daly traction removed
[2024-07-16] MEDS: HYDROmorphone INJ 2 MG/ML VIAL 1 MG IVP (12:48)
--- NOTE | 2024-07-16 15:17 | PC.NURSE ---
pt ambulate in [place] to nurses station and back to room without difficulty
--- NOTE | 2024-07-16 16:05 | ESPR_ITS ---
<Statement entered by Eric Escamilla DO - 07/16/24 19:34> Senior attestation: Patient was examined and case was reviewed with team including attending physician. Note reviewed, I agree with most of its contents and agree with the patient's care. Dilaudid given x1 today due to pain, repeat hemoglobin ordered however no gross hematuria was noted this morning in daly catheter bag. Eric Escamilla DO PGY-3 Documentation for date of: 07/16/24 Subjective Subjective Interval history: Patient seen at bedside. Patient continues to have mild hematuria, pink-colored urine seen in urinary catheter. Patient on bladder irrigation, complains of severe pain Patient will be given Dilaudid x 1 Will repeat hemoglobin in p.m. Otherwise patient is hemodynamically stable saturating well on room air Patient is status post cauterization of bleeding sites and prostate by urology Exam Vital Signs Temp Pulse Resp BP Pulse Ox O2 Del Method O2 Flow Rate 97.6 F 91 18 125/79 92 L Room Air 2 07/16/24 11:51 07/16/24 11:51 07/16/24 11:51 07/16/24 11:51 07/16/24 11:51 07/16/24 11:51 07/16/24 07:29 Narrative Exam Physical Exam General: Awake and in no acute distress. Conversational and non-toxic appearing. HEENT: Normocephalic, atraumatic, mucous membranes moist. Heart: Regular rate and rhythm, no murmurs. Lungs: Clear to auscultation with no wheezing or crackles. Abdomen: Soft, nondistended, nontender, positive bowel sounds. Patient's urine positive for pink color, seen at bedside. Neurologic: Alert and oriented x3, no gross neurological deficit, and patient able to move all 4 extremities. Extremities: No edema. Skin: No rash or ecchymoses. Objective Labs 07/16/24 15:45 07/16/24 05:03 Labs: Laboratory Results - last 24 hr 07/16/24 05:03 WBC 13.0 H RBC 2.83 L Hgb 8.6 L D Hct 25.2 L MCV 89 MCH 30.4 MCHC 34.1 RDW Std Deviation 46.5 H Plt Count 126 L D Neut % (Auto) 75 Lymph % (Auto) 11 [place] % (Auto) 12 Eos % (Auto) 1 Baso % (Auto) 0 Neut # (Auto) 9.7 H Lymph # (Auto) 1.5 [place] # (Auto) 1.6 H Eos # (Auto) 0.2 Baso # (Auto) 0.0 Immature Gran # (Auto) 0.04 H Absolute Nucleated RBC 0.00 Immature Gran % 0 Nucleated RBC % 0 Sodium 138 Potassium 3.7 D Chloride 109 H Carbon Dioxide 24.4 Anion Gap 5 L BUN 22 Creatinine 0.9 Estim Creat Clear Calc 70.9 eGFR > 60 BUN/Creatinine Ratio 24 H Glucose [address] Glu mg/dL 123 Hemoglobin A1c 5.9 Calculated Osmolality 279 Calcium 8.1 L Corrected Calcium 8.7 Phosphorus 2.4 Magnesium 1.7 Total Bilirubin 1.0 AST 10 ALT 11 Alkaline Phosphatase 47 Total Protein 4.9 L Albumin 3.2 L D Globulin 1.7 L Albumin/Globulin Ratio 1.9 Quality Measures Quality Measures VTE prophylaxis Advance care planning discussed with:: patient Assessment & Plan Assessment Current Active Medications: Generic Name Dose Route Start Last Admin Trade Name Freq PRN Reason Stop Dose Admin Hydrocodone Bitart/Acetaminophen 1 tab 07/14/24 10:22 07/16/24 04:10 Hydrocodone/Apap 5/325 Tablet PO 07/19/24 10:17 1 tab Q6HR PRN Administration PAIN 2-3 Atorvastatin Calcium 40 mg 07/15/24 21:00 07/15/24 20:02 Atorvastatin Calcium 20 Mg Tablet PO 08/14/24 20:59 40 mg HS OPAL Administration Dextrose 25 ml 07/15/24 09:41 Dextrose 50%-Water Inj 50 Ml Syringe IV 08/14/24 09:40 Q15MIN PRN BG 50-70 responsive npo pt Dextrose 50 ml 07/15/24 09:41 Dextrose 50%-Water Inj 50 Ml Syringe IV 08/14/24 09:40 Q15MIN PRN BG <50 OR BG <70 & pt unresponsive Glucagon 1 mg 07/15/24 09:41 Glucagon Inj 1 Mg Vial IM Q15MIN PRN BG <70, and no IV access Hydroxyzine HCl 25 mg 07/15/24 14:41 Hydroxyzine Hcl 25 Mg Tablet PO 08/14/24 14:40 BID PRN Anxiety Levofloxacin/Dextrose 500 mg in 100 mls @ 100 mls/hr 07/15/24 08:00 07/16/24 09:13 Levaquin Ivpb IV 07/22/24 07:59 100 mls/hr Q24H OPAL Administration Insulin Human Lispro 0 unit 07/15/24 11:30 07/16/24 12:09 Insulin Lispro (Admelog) 1 Unit/0.01 Ml Unit SC 08/14/24 11:29 Not Given ACHS OPAL Protocol Meperidine HCl 100 mg 07/14/24 22:49 07/16/24 10:52 Meperidine Inj 50 Mg/Ml Vial IM 07/19/24 22:48 100 mg Q6HR PRN Administration PAIN SCALE 7-10 (Severe Nicotine 21 mg 07/15/24 14:45 07/16/24 08:44 Nicotine Patch 21 Mg/24 Hr Patch.Td24 TOP 08/14/24 14:44 21 mg QDAY OPAL Administration Ondansetron HCl 4 mg 07/14/24 10:14 Ondansetron Inj 2 Mg/Ml Inj 2 Ml IV 08/13/24 10:13 Q6HR PRN NAUSEA OR VOMITING Promethazine HCl 25 mg 07/14/24 10:14 07/16/24 11:15 Promethazine Inj 25 Mg/Ml Vial IM 08/13/24 10:13 25 mg Q6HR PRN Administration To be given with Dermerol Plan Assessment and Plan: Summary: Mr. Albert is a 69-year-old male with past medical history of benign hypertrophy of prostate, hypertension, diabetes and anxiety who was admitted to [facility] for TURP for symptomatic benign hypertrophy of prostate. #Gross Hematuria, resolving #Acute anemia secondary to gross hematuria, resolving #Benign hypertrophy of prostate #Status post TURP 07/14 # Status post Cystoscopy, evacuation of large amount of bladder clots and fulguration of the prostatic fossa 07/15 -Patient complained of nocturia and urinary symptoms, patient was admitted for transurethral resection of prostate due to underlying symptomatic benign hypertrophy of prostate. -Patient's status post TURP, had a rapid response called for dizziness and low blood pressure, blood pressure 83/67 (MAP 72), patient tachycardic, was undergoing bladder irrigation gross hematuria noted at bedside. Patient was given 500 cc bolus NS. -Patient was transfused 2 units PRBC-07/14, posttransfusion H&H stable -PT/PTT and INR within normal limits Plan: -Patient denies any dizziness today -Repeat H&H at 5 PM -Patient is being followed by urologist -Hold aspirin. #Diabetes mellitus -Patient takes Jardiance, Janumet at home -Hemoglobin A1c 5.9 -Lispro sliding scale insulin -Hypoglycemia protocol in place #Hypertension #Hyperlipidemia #Anxiety #Chronic smoker, nicotine dependence -Patient takes amlodipine 10 mg daily for hypertension, will hold blood pressure soft -Resume atorvastatin at bedtime -Resumed hydroxyzine 25 mg p.o. twice daily -Will hold Zoloft for now -Patient started on nicotine patch 21 mg daily DVT prophylaxis: SCDs GI prophylaxis: Not indicated Diet: N.p.o. Lines: Peripheral IV Code status: Full code Case discussed with Attending Dr. Kevin and Dr. Escamilla PGY3. Aracely Douglass PGY1 Attending Provider Attestation/Addendum I have discussed and was present for the essential components of the history, physical examination, diagnosis, and treatment plan with the resident. I agree with the patient's care as documented by the resident and amended herein by me. Ramon Kevin DO. Patient seen and evaluated this AM. Hemoglobin stable, patient however is in a copious amount of pain however we will switch the patient's medicated with Dilaudid. Patient may be discharged later in the afternoon per urology, will continue to monitor until that time Although this document has been carefully reviewed, there may still be some phonetic and other typographical errors. These errors are purely grammatical due to imperfections in the software program and should not be construed in any way to compromise the substance of the patient's medical care during this visit.
[2024-07-16 16:21] LABS: Hematocrit 24.6 % (41.0-53.0)
[2024-07-16 16:46] LABS: Hemoglobin 8.4 g/dL (13.5-16.0)
== END 2024-07-16 18:14 | disposition home or self-care (01) | DRG 713 ==
LOC: S2EX 13:23 → S3NX 13:23
PROVIDERS: Anesthesiology; Student in an Organized Health Care Education/Training Program; Admitting Provider Surgery; PCP Family Medicine; Referring Provider Surgery; Visit Provider Student in an Organized Health Care Education/Training Program
PROC: 0VT08ZZ Resection of Prostate, Via Natural or Artificial Opening Endoscopic (ICD-10-PCS; CPT 52601; principal; 2024-07-14 08:30)
DX: N40.1 Benign prostatic hyperplasia with lower urinary tract symptoms (principal); N13.8 Other obstructive and reflux uropathy; R35.1 Nocturia; R33.8 Other retention of urine; E11.9 Type 2 diabetes mellitus without complications; I10 Essential (primary) hypertension; F41.9 Anxiety disorder, unspecified; F17.200 Nicotine dependence, unspecified, uncomplicated; E78.5 Hyperlipidemia, unspecified; R31.0 Gross hematuria; R42 Dizziness and giddiness; R00.0 Tachycardia, unspecified; N32.89 Other specified disorders of bladder; R39.198 Other difficulties with micturition; R35.0 Frequency of micturition
CPT/HCPCS: 36415; 80053; 80069; 81001; 83036; 83735; 84100; 85014; 85018; 85025; 85610; 85730; 86850; 86900; 86901; 86923; A4217; A4649; J0694; J1100; J1815; J1885; J1956; J2175; J2250; J2371; J2405; J2550; J2704; J2765; J3010; J3490; J7030; J7040; P9016; P9045; A9270

== ENCOUNTER → 2025-01-12 | Outpatient (CLI) | payer MEDICARE, MEDICAID, SELFPAY ==
--- NOTE | 2025-01-12 08:00 | XR_ITS ---
Examination: CT chest, without intravenous contrast. Sagittal and coronal 2-D reconstructions. Exam date and time: January 12, 2025 0732 hours Comparison March 24, 2024 INDICATIONS: CT chest March 02, 2024 2 mm pulmonary nodule left upper lobe 4 mm pulmonary nodule left upper lobe 4 mm pulmonary nodule right mid lung, 3 mm pulmonary nodule left lower lobe, nicotine dependence history smoking history 30+ years CTDI:vol (mGy) 12.3 DLP: (mGycm) 467 Technique: Multiple 3.0 mm axial sections of the chest to been obtained. Bone and lung density settings are obtained. Sagittal and coronal 2-D reconstructions have been obtained. Low dose protocols were performed. One or more of the following dose reduction techniques were used; automated exposure control, adjustment of the mA and/or KV according to patient size, use of iterative reconstruction technique. Findings: No thoracic aortic aneurysm dilatation Pulmonary artery segments are nonenlarged Significant calcification left anterior descending coronary artery No paratracheal tracheobronchial or bronchopulmonary adenopathy Stable bilateral subcentimeter noncalcified pulmonary nodules No new pulmonary nodules No visualized liver or splenic lesion No visualized gallstones Atrophic pancreas Kidneys partially visualized and no hydronephrosis IMPRESSION: Stable bilateral subcentimeter noncalcified pulmonary nodules No new pulmonary nodules
[2025-01-12 08:48] LABS: Glucose Estimated Average 192 mg/dL (80-131); Hemoglobin A1C 8.3 % Hgb (4.8-6.0)
[2025-01-12 09:02] LABS: Vitamin B12 536 pg/mL (211-911)
[2025-01-12 09:15] LABS: Alanine Aminotransferase 27 U/L (10-49); Albumin, Serum 4.9 gm/dL (3.4-4.8); Albumin/Globulin Ratio 1.8 (1.2-2.2); Alkaline Phosphatase 84 U/L (46-116); Anion Gap 14 (7-16); Aspartate Amino Transferase 29 U/L (0-34); BUN/Creatinine Ratio 13 Ratio (12-20); Bilirubin,Total 1.1 mg/dL (0.3-1.2); Blood Urea Nitrogen 13 mg/dL (9-23); Calcium 9.7 mg/dL (8.3-10.6); Calcium (Corrected) 9.7 mg/dL (8.5-10.1); Carbon Dioxide 21.3 mMol/L (20.0-31.0); Cardiac Risk Estimate 2.8 RATIO (4.0-6.7); Chloride 106 mMol/L (98-107); Cholesterol 131 mg/dL (132-200); Free T4 (Free Thyroxine) 1.34 ng/dL (0.89-1.76); Globulin 2.8 gm/dL (2.3-3.5); Glucose 154 mg/dL (74-106); HDL Cholesterol 46 mg/dL (40-60); LDL Cholesterol,Calculated 49 mg/dL (0-130); Osmolality,Calculated 284 (275-295); Potassium 4.9 mMol/L (3.4-5.1); Sodium 141 mMol/L (136-145); Thyroid Stimulating Hormone 1.64 uIU/mL (0.55-4.78); Total Protein 7.7 gm/dL (5.7-8.2); Triglycerides 181 mg/dL (30-150); eGFR > 60 See Note
== END | disposition home or self-care (01) ==
LOC: CCTX 07:03
PROVIDERS: PCP Family Medicine; Referring Provider Psychiatry & Neurology Neurology; Visit Provider Family Medicine
DX: R91.8 Other nonspecific abnormal finding of lung field (principal); F17.210 Nicotine dependence, cigarettes, uncomplicated
CPT/HCPCS: 36415; 71271; 80053; 80061; 82607; 83036; 84439; 84443